=== PATIENT | male | born 1990 | race Caucasian/White ===

== ENCOUNTER 2021-12-13 20:10 | Observation (INO) | payer BC, OTHER ==
[2021-12-13] MEDS ORDERED: Ondansetron PF 4 MG/2 ML Vial ONE ×2 (20:30→23:23)
[2021-12-13 20:45] LABS: Hemoglobin 19.6 g/dL (14.0-18.0); Mean Corpuscular HGB CONC 32.8 g/dL (32.0-36.0); Mean Corpuscular Volume 94.8 fL (78.0-98.0); Mean Platelet Volume 7.2 fL (7.4-10.4); Platelet Count 510 thou/uL (130-400); Red Blood Cell (RBC) Count 6.32 mill/uL (4.70-6.10); White Blood Cell (WBC) Count 29.2 thou/uL (4.8-10.8)
[2021-12-13 20:50] LABS: ALT (SGPT) 57 U/L (8-55); AST (SGOT) 36 U/L (5-34); Alkaline Phosphatase 80 U/L (40-110); Anion Gap 30 mmol/L (10-20); BUN (Urea Nitrogen) 22 mg/dL (8.9-20.6); Bilirubin, Total 1.6 mg/dL (0.2-1.2); CK (CPK) 841 U/L (30-200); Calc. Creatinine Clearance 0 mL/min (70-130); Carbon Dioxide 21 mmol/L (22-29); Chloride 91 mmol/L (98-107); Glucose 112 mg/dL (70-105); Potassium 4.9 mmol/L (3.5-5.1); Protein, Total 11.6 g/dL (6.0-8.3); Sodium 137 mmol/L (136-145)
[2021-12-13 21:08] LABS: Albumin Greater than 6.2 g/dL (3.5-5.0); Calcium 12.9 mg/dL (7.8-10.44); Globulin 5.4 g/dL (2.4-3.5)
[2021-12-13 21:28] LABS: Band 4 % (5-11); Eosinophils 1 % (0-10); Lymphocytes 16 % (21-51); MDiff Complete? YES; Monocytes 2 % (0-10); Neutrophil 77 % (42-75); RBC Morphology Normal
[2021-12-13] MEDS ORDERED: cefTRIAXone\\ROCEPHIN 1 GM VIAL ONE (21:59)
[2021-12-13 22:55] LABS: SARS-CoV-2 NAA Rapid Test Not Detected (NotDetected)
[2021-12-13] MEDS ORDERED: Morphine 4 MG/ML VIAL SLOW IVP PRN (23:36)
[2021-12-13] MEDS ORDERED: Ondansetron PF 4 MG/2 ML Vial IVP PRN (23:45)
[2021-12-13] MEDS ORDERED: Ondansetron ODT 4 MG TAB SL PRN (23:45)
[2021-12-14 00:14] LABS: Lactic Acid 1.8 mmol/L (0.5-2.2)
[2021-12-14] MEDS: Lactated Ringer's 1,000 ML IV SCH ×4 (00:24→07:29)
[2021-12-14] MEDS ORDERED: Morphine 4 MG/ML VIAL ONE (04:54)
[2021-12-14] MEDS ORDERED: tiZANidine HCl 4 MG TAB PO PRN (05:42)
[2021-12-14 06:22] LABS: #Basophils 0.1 thou/uL (0.0-0.2); #Eosinphils 0.1 thou/uL (0.0-0.7); #Lymphocytes 3.9 thou/uL (1.20-3.40); #Monocytes 1.7 thou/uL (0.11-0.59); #Neutrophils 9.9 thou/uL (1.40-6.50); %Basophils 0.4 % (0.0-1.0); %Eosinophils 0.8 % (0.0-10.0); %Neutrophils 62.9 % (42.0-75.0); Hemoglobin 15.2 g/dL (14.0-18.0); Mean Corpuscular HGB CONC 33.1 g/dL (32.0-36.0); Mean Corpuscular Hemoglobin 31.2 pg (27.0-31.0); Mean Corpuscular Volume 94.2 fL (78.0-98.0); Mean Platelet Volume 7.6 fL (7.4-10.4); Platelet Count 340 thou/uL (130-400); RBC Distribution Width 13.1 % (11.5-14.5); Red Blood Cell (RBC) Count 4.87 mill/uL (4.70-6.10); White Blood Cell (WBC) Count 15.8 thou/uL (4.8-10.8)
[2021-12-14 06:29] LABS: Lactic Acid 0.8 mmol/L (0.5-2.2)
[2021-12-14 06:44] LABS: ALT (SGPT) 37 U/L (8-55); AST (SGOT) 39 U/L (5-34); Albumin 4.5 g/dL (3.5-5.0); Alkaline Phosphatase 50 U/L (40-110); Anion Gap 17 mmol/L (10-20); BUN (Urea Nitrogen) 19 mg/dL (8.9-20.6); Bilirubin, Total 0.9 mg/dL (0.2-1.2); Calc. Creatinine Clearance 0 mL/min (70-130); Calcium 9.3 mg/dL (7.8-10.44); Carbon Dioxide 23 mmol/L (22-29); Chloride 103 mmol/L (98-107); Globulin 2.5 g/dL (2.4-3.5); Glucose 102 mg/dL (70-105); Potassium 4.3 mmol/L (3.5-5.1); Sodium 139 mmol/L (136-145)
[2021-12-14 08:21] VITALS: TEMP 98.2
[2021-12-14] MEDS ORDERED: Propranolol HCl 20 MG TAB PO SCH (09:00)
[2021-12-14] MEDS ORDERED: Diazepam 5 MG TAB PO SCH (09:00)
[2021-12-14] MEDS ORDERED: predniSONE 20 MG TAB PO SCH (10:30)
[2021-12-14 11:48] VITALS: BP 131/86
== END 2021-12-14 11:48 | disposition home or self-care (01) ==
LOC: BURERS 20:10 → BURMED 23:40
PROVIDERS: ADMIT Family Medicine; ATTEND Family Medicine
DX: E86.0 Dehydration (principal); E87.2 Acidosis; N17.9 Acute kidney failure, unspecified; D72.829 Elevated white blood cell count, unspecified; R00.0 Tachycardia, unspecified; G89.29 Other chronic pain; M54.9 Dorsalgia, unspecified; Z20.822 Contact with and (suspected) exposure to COVID-19
CPT/HCPCS: 36415; 71045; 80053; 82550; 83605; 85025; 87040; 96361; 96374; 96375; 96376; G0378; J0696; J2270; J2405; J7120; J7512; U0002